=== PATIENT | female | born 2000 | race Caucasian/White ===

== ENCOUNTER 2025-07-12 20:48 | Inpatient (IN) | payer BC ==
[~2025-07-12] VITALS: Ht 167.6 cm; Wt 75.3 kg
[2025-07-12 21:47] LABS: MCH 29.2 PG (25.6-32.2); MCHC 34.0 g/dL (32.2-35.5); MCV 85.7 fL (79.4-94.8); RBC 4.35 M/uL (3.93-5.22)
[2025-07-12 21:53] LABS: PROTEIN, RANDOM URINE <6 mg/dL (NOT ESTABLISHED)
[2025-07-12 22:04] LABS: ALT (SGPT) 25.0 U/L (14-59); AST (SGOT) 27.0 U/L (15-37); GLOMERULAR FILTRATION RATE,EST 134.0 mL/min (>60); LACTATE DEHYDROGENASE 199.0 U/L (81-234); PROTEIN, TOTAL 6.5 g/dL (6.4-8.2); UREA NITROGEN 10.0 mg/dL (7-18)
[2025-07-12] MEDS ORDERED: TERBUTALINE SULFATE 1 MG/ML AMP SUB-Q PRN (23:00)
[2025-07-12] MEDS ORDERED: LACTATED RINGER'S 1,000 ML IV SCH (23:00)
[2025-07-12] MEDS ORDERED: MAGNESIUM HYDROXIDE/AL HYDROX 30 ML CUP PO PRN (23:00)
[2025-07-12] MEDS ORDERED: CALCIUM CARBONATE 500 MG CHEW PO PRN (23:00)
[2025-07-12] MEDS ORDERED: LIDOCAINE HCL 1% 30 ML SDV INJ PRN (23:00)
[2025-07-12] MEDS ORDERED: LACTATED RINGER'S 1,000 ML IV PRN (23:00)
[2025-07-12] MEDS ORDERED: OXYTOCIN/0.9 % SODIUM CHLORIDE 30 UNITS/500 ML BAG IV SCH (23:00)
[2025-07-12 23:28] LABS: ABO AB; ANTIBODY SCREEN NEGATIVE; RH NEGATIVE
[2025-07-13 00:28] VITALS: BP 163/94
--- NOTE | 2025-07-13 12:56 | PR ---
[facility] [address], [place] [address] Signed Progress Notes IP Datetime Report Generated by CPN: 07/13/2025 12:55 PROGRESS NOTES: [id number] Impression: Normal Progression of Labor; Reassuring Heart Rate Plan: Continue Present Management Informed Consent Obtain: Risks, Benefits and Alternatives Discussed VITAL SIGNS: [id number] Vital Signs: Reviewed VS Notable Details: Elevated BPs but not sustained severe; will monitor EXAM: [id number] Dilatation: 0.0 Effacement: 50 Effacement: 50 Effacement: 50 Effacement: 50 Effacement: 0 Station: -3 Station: -3 Station: -3 Station: -3 Station: -3 MEMBRANES: [id number] Comments: Pt seen and examined. Doing well. Pt w/ occasional decelerations w/ remainder of strip Cat 1. Reviewed contraction pattern and contniues to contract frequently w/ last dose of cytotec _ 7-8 hrs ago. Cx continues to be remain close. Will monitor and reevaulate. All questions answered. FETUS A: [id number] FHR Baseline: 145 Variability: Moderate 6-25bpm Accelerations: 15X15 Decelerations: None FHR Category: Category I Presentation: Vertex Comments on Fetus A: No evidence of metabolic acidosis FETUS B: [id number] Signing Physician: Mynor Brito DO *Electronically Signed* 07/13/25 0521 MYNOR BRITO (EZEQUIEL) DO PATIENT NAME: MADISON PARSONS MADONNA PROGRESS NOTE DATE OF : 01 PHYSICIAN: MYNOR BRITO (JD) DO RPT #: [id number] REPORT IS CONFIDENTIAL AND NOT TO BE RELEASED WITHOUT AUTHORIZATION
[2025-07-13] MEDS ORDERED: ROPIVACAINE 0.2% 200 ML BAG EPIDURAL SCH (16:15)
[2025-07-13] MEDS ORDERED: LACTATED RINGER'S 2,000 ML IV ONE (16:15)
[2025-07-13] MEDS ORDERED: ePHEDrine sulfate 5 MG/ML SYRINGE IV PRN (16:15)
[2025-07-13] MEDS ORDERED: LACTATED RINGER'S 500 ML IV PRN (16:15)
--- NOTE | 2025-07-13 17:43 | PR ---
[facility] [address] [facility] [place] [address] Signed Progress Notes IP Datetime Report Generated by CPN: 07/13/2025 17:43 Impression: Normal Progression of Labor; Reassuring Heart Rate Plan: Continue Present Management Dilatation: 1.0 Effacement: 65 Station: -3 Contractions: q 2-3 Comments: Pt seen and evaluated. Last Cx exam per RN. Pt w/ tachysystole w/ occasional decelerations. Now cat 1. Will continue to monitor. All questions answered. Variability: Moderate 6-25bpm Decelerations: None FHR Category: Category I Signing Physician: Mynor Brito DO Copies: ~ *Electronically Signed* 07/13/25 1743 MYNOR BRITO) DO PATIENT NAME: MADISON PARSONS ISMAYOSEF PROGRESS NOTE DATE OF : 01 PHYSICIAN: MYNOR BRITO DO (JD) RPT #: [id number] REPORT IS CONFIDENTIAL AND NOT TO BE RELEASED WITHOUT AUTHORIZATION
--- NOTE | 2025-07-13 21:16 | PR ---
[facility] [address] [facility] [place], [place] [address] Signed Progress Notes IP Datetime Report Generated by CPN: 07/13/2025 21:16 Impression: Normal Progression of Labor; Reassuring Heart Rate Procedures: Sterile Vag Exam Plan: Continue Present Management; Anticipate Vaginal Delivery Informed Consent Obtain: Vaginal Delivery Dilatation: 5.0 Effacement: 90 Effacement: 70 Station: -1 Station: -3 Contractions: irregular Comments: Pt seen and examined. Doing well. Comfortable. Clear fluid. Reviewed FHT and cervical progression. Will continue expectant management and at this point anticipate . All questions answered. Variability: Moderate 6-25bpm Decelerations: None FHR Category: Category I Signing Physician: Mynor Brito DO Copies: ~ *Electronically Signed* 07/13/252115 MYNOR BRITO) DO PATIENT NAME: MADISON PARSONSYOSEF PROGRESS NOTE DATE OF : 01 PHYSICIAN: MYNOR BRITO) RPT #: [id number] REPORT IS CONFIDENTIAL AND NOT TO BE RELEASED WITHOUT AUTHORIZATION
--- NOTE | 2025-07-14 02:55 | PR ---
[facility] [address] [facility] [place], [place] [address] Signed Progress Notes IP Datetime Report Generated by CPN: 07/14/2025 02:54 Impression: Normal Progression of Labor; Reassuring Heart Rate Procedures: Sterile Vag Exam Plan: Continue Present Management; Anticipate Vaginal Delivery Informed Consent Obtain: Vaginal Delivery; Risks, Benefits and Alternatives Discussed Dilatation: 10.0 Effacement: 100 Effacement: 95 Effacement: 90 Station: -1 Station: -1 Contractions: q 1-3 min Comments: Pt complete and feeling some pressure. Comfortable w/ epidural. Pt pushing well w/ contractions. Mother and baby tolerating. Will continue pushing efforts and anticipate . Variability: Moderate 6-25bpm Decelerations: None FHR Category: Category I Signing Physician: Mynor Brito DO Copies: ~ *Electronically Signed* 07/14/25 0254 MYNOR BRITO) DO PATIENT NAME: MADISON PARSONSYOSEF PROGRESS NOTE DATE OF : 01 PHYSICIAN: MYNOR BRITO) DO RPT #: [id number] REPORT IS CONFIDENTIAL AND NOT TO BE RELEASED WITHOUT AUTHORIZATION
[2025-07-14] MEDS ORDERED: HYDROCODONE/ACETA 5/325 TAB PO PRN (05:45)
[2025-07-14] MEDS ORDERED: WITCH HAZEL/GLYCERIN 1 EA PAD TOP PRN (05:45)
[2025-07-14] MEDS ORDERED: MAGNESIUM HYDROXIDE 30 ML UDC PO PRN (05:45)
[2025-07-14] MEDS ORDERED: ACETAMINOPHEN 325 MG TAB PO PRN (05:45)
[2025-07-14] MEDS ORDERED: CALCIUM CARBONATE 500 MG CHEW PO PRN (05:45)
[2025-07-14] MEDS ORDERED: OXYTOCIN/0.9 % SODIUM CHLORIDE 500 ML IV SCH (05:45)
[2025-07-14] MEDS ORDERED: HYDROCORTISONE ACETATE 25 MG SUPP PR PRN (05:45)
[2025-07-14] MEDS ORDERED: MAGNESIUM HYDROXIDE/AL HYDROX 30 ML CUP PO PRN (05:45)
[2025-07-14] MEDS ORDERED: BENZOCAINE 60 ML AEROSOL TOP PRN (05:45)
[2025-07-14] MEDS ORDERED: IBUPROFEN 600 MG TAB PO PRN (05:45)
[2025-07-14] MEDS ORDERED: OXYCODONE/APAP 5/325 TAB PO PRN (05:45)
[2025-07-14] MEDS ORDERED: SENNOSIDES/DOCUSATE 1 EA TAB PO SCH (09:00)
[2025-07-15 05:39] LABS: MCH 28.1 PG (25.6-32.2); MCHC 31.9 g/dL (32.2-35.5); MCV 88.3 fL (79.4-94.8); RBC 3.66 M/uL (3.93-5.22)
[2025-07-15 06:24] LABS: ABO AB; ANTIBODY SCREEN NEGATIVE; FETAL HEMOGLOBIN SCREEN NEGATIVE; RH NEGATIVE; RHIG STATUS NOT A CANDIDATE
[2025-07-15] MEDS ORDERED: PHENYLEPHRINE HCL IN 0.9% NACL 1 MG/10 ML SYR ONE ×2 (12:24→12:27)
--- NOTE | 2025-07-15 16:32 | PR ---
[facility] [address] [facility] [place], [place] [address] Signed PP Progress Notes Datetime Report Generated by CPN: 07/15/2025 16:32 SUBJECTIVE: [id number] Pain: Within Normal Limits Nausea/Vomiting: Denies Flatus: Yes Bowel Movement: No Vital Signs: [id number] Vital Signs: Reviewed Notable Details: Sustained elevated BPs, but no severe range BPs Cardiovascular: Normal Respiratory: Normal Abdomen/Uterus: Normal Lochia: Normal Vulva/Perineum: Not Done Breasts: Not Done CVA Tenderness: Normal Extremities: Abnormal Exam Comments: Fundus firm U-2 nontender. 3+ pitting edema LE bilaterally IMPRESSION/PLAN/PROCEDURES: [id number] Impression: Normal Progression Plan: Discharge Progress Notes: Pt seen and examined. Doing well. Ambulating, voiding, and tolerating full diet. Pain and lochia minimal. . C/O bilateral edema but no SOB. Desires d/c home today. Reviewed d/c meds and f/u. Elevated BPs today but no severe range. Reviewed BPs and will start procardia XL 30mg daily. BP check in 2 days. No other questions or concerns. Undecided on pp contraception. F/U 2 days for BP check, 6 wks for pp visit. Signing Physician: Mynor Brito DO Copies: ~ *Electronically Signed* 07/15/25 3469 MYNOR BRITO (EZEQUIEL) DO PATIENT NAME: MADISON PARSONSMargaritoCATHI PROGRESS NOTE DATE OF : 01 PHYSICIAN: MYNOR BRITO) DO RPT #: [id number] REPORT IS CONFIDENTIAL AND NOT TO BE RELEASED WITHOUT AUTHORIZATION
== END 2025-07-15 17:20 | disposition home or self-care (01) | DRG 806 ==
LOC: FBCO 20:48 → FBC 22:05
PROVIDERS: ADMIT Obstetrics & Gynecology; ATTEND Obstetrics & Gynecology
PROC: 10E0XZZ Delivery of Products of Conception, External Approach (ICD-10-PCS; principal; 2025-07-14)
PROC: 3E0R3BZ Introduction of Anesthetic Agent into Spinal Canal, Percutaneous Approach (ICD-10-PCS; 2025-07-14)
PROC: 00HU33Z Insertion of Infusion Device into Spinal Canal, Percutaneous Approach (ICD-10-PCS; 2025-07-14)
PROC: 0HQ9XZZ Repair Perineum Skin, External Approach (ICD-10-PCS; 2025-07-14)
PROC: 3E033VJ Introduction of Other Hormone into Peripheral Vein, Percutaneous Approach (ICD-10-PCS; 2025-07-14)
DX: O13.4 Gestational [pregnancy-induced] hypertension without significant proteinuria, complicating childbirth (principal); O99.12 Other diseases of the blood and blood-forming organs and certain disorders involving the immune mechanism complicating childbirth; Z37.0 Single live birth; O14.94 Unspecified pre-eclampsia, complicating childbirth; O70.0 First degree perineal laceration during delivery; O26.893 Other specified pregnancy related conditions, third trimester; Z67.41 Type O blood, Rh negative; Z3A.37 37 weeks gestation of pregnancy
CPT/HCPCS: 01960; 36415; 80053; 82565; 82570; 83030; 83615; 84156; 84550; 85027; 86850; 86900; 86901; A9270; J0165; J2405; J2790; J2795; J3105; J7121